=== PATIENT | male | born 1975 | race Caucasian/White ===

== ENCOUNTER 2017-05-20 16:05 | Inpatient (IN) | payer MEDICAID, OTHER ==
[~2017-05-20] VITALS: Ht 167.6 cm; Wt 86.0 kg
[2017-05-20 17:11] LABS: BASOPHILS % 0.4 % (0.0-2.0); EOSINOPHILS % 0.6 % (0.0-7.0); HEMATOCRIT 44.6 % (42.0-52.0); HEMOGLOBIN 14.7 g/dl (14.0-18.0); LYMPHOCYTES # 1.1 10^3/ul (0.8-2.9); LYMPHOCYTES % 15.4 % (15.0-51.0); MEAN CORPUSCULAR HEMOGLOBIN 28.5 pg (29.0-33.0); MEAN CORPUSCULAR VOLUME 86.4 fl (82.0-101.0); MEAN PLATELET VOLUME 10.4 fl (7.4-10.4); MONOCYTE # 0.9 10^3/ul (0.3-0.9); NEUTROPHILS % 71.2 % (39.0-77.0); PLATELET COUNT 407 10^3/UL (140-415); POSITIVE DIFF @See below; RED BLOOD COUNT 5.16 10^6/ul (4.70-6.10); RED CELL DISTRIBUTION WIDTH 16.3 % (11.5-14.5); WHITE BLOOD COUNT 7.1 10^3/ul (4.8-10.8)
[2017-05-20 17:46] LABS: ALBUMIN 4.6 g/dl (3.3-4.9); ALKALINE PHOSPHATASE 237 IU/L (42-121); ANION GAP 16 (8-16); BILIRUBIN,INDIRECT 2.4 mg/dl (0-1.1); BLOOD UREA NITROGEN 12 mg/dl (7-20); CALCIUM 9.9 mg/dl (8.4-10.2); CARBON DIOXIDE 29 mmol/L (21-31); CHLORIDE 99 mmol/L (97-110); CREATININE 1.51 mg/dl (0.61-1.24); GLUCOSE 130 mg/dl (70-220); POTASSIUM 4.4 mmol/L (3.5-5.1); SODIUM 140 mmol/L (135-144); TOTAL PROTEIN 9.2 g/dl (6.1-8.1)
[2017-05-20 17:49] LABS: ETHANOL < 10.0 mg/dl
[2017-05-20 17:53] LABS: ALANINE AMINOTRANSFERASE 2659 IU/L (13-69)
[2017-05-20 18:08] LABS: ASPARTATE AMINO TRANSFERASE 1532 IU/L (15-46)
--- NOTE | 2017-05-20 18:25 | ERA ---
ER Documentation Chief Complaint Date/Time DATE: 05/20/17 TIME: 18:20 Chief Complaint Nausea x 5 days "eyes look yellow" x 2 days HPI This is a 41-year-old male with no previous medical history who presents to the emergency room for evaluation of nausea, and abdominal cramping for the past 5 days. According to the patient today he came to the emergency room because he started to notice that his skin started to become yellow and is progressively gotten worse over the past 48 hours. The patient denies any history of alcohol ingestion, denies any illicit drugs, and states he has abdominal cramping but denies any abdominal pain at this time. The patient came to the ER for evaluation. ROS All systems reviewed and are negative except as per history of present illness. Medications Home Meds No Active Prescriptions or Reported Meds Allergies Allergies: Coded Allergies: No Known Allergy (Unverified , 05/20/17) PMhx/Soc Medical and Surgical Hx: pt denies Medical Hx, pt denies Surgical Hx Hx Alcohol Use: No Hx Substance Use: No Hx Tobacco Use: No Smoking Status: Never smoker Physical Exam Vitals Vital Signs Date Time Temp Pulse Resp B/P Pulse Ox O2 Delivery O2 Flow Rate FiO2 05/20/17 16:09 96.8 99 19 139/91 96 Physical Exam INITIAL VITAL SIGNS: Reviewed by me GENERAL: The patient is well developed and appropriate for usual state of health in no apparent distress HEENT: Scleral icterus, pupils equal, round, and reactive to light. EOMI. NECK: C-spine is soft and supple, there is no meningismus. There is no cervical lymphadenopathy. LUNGS: Clear to auscultation bilaterally. There are no rales, wheezes or rhonchi. HEART: Regular rate and rhythm, no murmurs, clicks, rubs or gallops. ABDOMEN: Epigastric tenderness to palpation, negative Urrutia sign, otherwise soft, non-tender, non-distended. There are bowel sounds in all four quadrants. No rebound or guarding. EXTREMITIES: There is no peripheral cyanosis or edema. No focal swelling or erythema. NEUROLOGICAL: The patient moves all four extremities with 5/5 strength. Cranial nerves II - XII are intact. Normal gait. Alert and oriented SKIN: Jaundice skin HEME/LYMPHATIC: There is no evidence of excessive bruising or lymphedema. PSYCHIATRIC: The patient does not appear anxious or depressed. Result Diagram: 05/20/17 1650 05/20/17 1650 Results 24 hrs Laboratory Tests Test 05/20/17 16:50 White Blood Count 7.110^3/ul Red Blood Count 5.1610^6/ul Hemoglobin 14.7g/dl Hematocrit 44.6% Mean Corpuscular Volume 86.4fl Mean Corpuscular Hemoglobin 28.5pg Mean Corpuscular Hemoglobin Concent 33.0g/dl Red Cell Distribution Width 16.3% Platelet Count 32074^3/UL Mean Platelet Volume 10.4fl Neutrophils % 71.2% Lymphocytes % 15.4% Monocytes % 12.0% Eosinophils % 0.6% Basophils % 0.4% Nucleated Red Blood Cells % 0.0/100WBC Neutrophils # (Manual) 5.110^3/ul Lymphocytes # 1.110^3/ul Monocytes # 0.910^3/ul Eosinophils # 0.010^3/ul Basophils # 0.010^3/ul Nucleated Red Blood Cells # 0.010^3/ul Sodium Level 140mmol/L Potassium Level 4.4mmol/L Chloride Level 99mmol/L Carbon Dioxide Level 29mmol/L Anion Gap 16 Blood Urea Nitrogen 12mg/dl Creatinine 1.51mg/dl Glucose Level 130mg/dl Calcium Level 9.9mg/dl Total Bilirubin 15.0mg/dl Direct Bilirubin 12.60mg/dl Indirect Bilirubin 2.4mg/dl Aspartate Amino Transf (AST/SGOT) 1532IU/L Alanine Aminotransferase (ALT/SGPT) 2659IU/L Alkaline Phosphatase 237IU/L Total Protein 9.2g/dl Albumin 4.6g/dl Globulin 4.60g/dl Albumin/Globulin Ratio 1.00 Lipase 187U/L Ethyl Alcohol Level < 10.0mg/dl Current Medications Medications (Trade) Dose Ordered Sig/Sachin Route PRN Reason Start Time Stop Time Status Last Admin Dose Admin Ondansetron HCl (Zofran Inj) 4 mg BRIDGE ORDER PRN IV NAUSEA AND/OR VOMITING 05/20/17 18:30 05/21/17 18:29 Acetaminophen (Tylenol Tab) 650 mg ER BRIDGE PRN PO MILD PAIN/FEVER 05/20/17 18:30 05/21/17 18:29 Procedures/MDM Ultrasound abdomen: Increased echogenicity of the liver parenchyma suggestive of hepatic steatosis. No focal hepatic lesions. Normal caliber intrahepatic and extrahepatic biliary system. Gallbladder appears contracted without gallstones, no evidence of cholecystitis. This 41-year-old male presents to the ER for evaluation of jaundice and abdominal cramping. When I evaluated this patient he appear to be extremely jaundiced and did have some mild epigastric tenderness to palpation however negative Urrutia sign. This patient had lab work obtained in his lab work does show bilirubin level of 15 with a direct bilirubin of 12.6. The patient also has transaminitis with AST greater than 1500 was a month, ALT greater than 2600. The patient did not have any obstruction on ultrasound however the patient will need to be admitted at this time for ERCP for evaluation of any possible distal obstruction which is not visualized on ultrasound at this time. The patient is comfortable with the plan of care. He will be admitted to the Medr floor under the care of Dr. Baeza Departure Diagnosis: Primary Impression: Jaundice Additional Impressions: Acute hepatitis Transaminitis Condition: Stable NOAM MORTON DO May 20, 2017 18:25
[2017-05-20] MEDS ORDERED: ACETAMINOPHEN 325 MG TAB PO PRN (18:30)
[2017-05-20] MEDS ORDERED: ONDANSETRON 4 MG INJ IV PRN (18:30)
[2017-05-20 18:38] LABS: ADD UMIC NO; UR ASCORBIC ACID NEGATIVE (NEGATIVE); UR BILIRUBIN (Dip) 2+ mg/dL (NEGATIVE); UR BLOOD (Dip) NEGATIVE (NEGATIVE); UR CLARITY SLIGHTLY CLOUDY (CLEAR); UR COLOR AMBER (YELLOW); UR GLUCOSE (Dip) NEGATIVE (NEGATIVE); UR KETONES (Dip) NEGATIVE (NEGATIVE); UR LEUKOCYTE ESTERASE (Dip) NEGATIVE Leu/ul (NEGATIVE); UR NITRITE (Dip) NEGATIVE (NEGATIVE); UR RBC 0 /HPF (0-5); UR SPECIFIC GRAVITY (Dip) 1.015 (1.003-1.030); UR TOTAL PROTEIN (Dip) NEGATIVE (NEGATIVE); UR UROBILINOGEN (Dip) 2+ mg/dL (NEGATIVE)
[2017-05-20 18:48] LABS: HAAIG REFLEX REFLEX FILED
[2017-05-20 20:18] LABS: HEPATITIS B CORE ANTIBODY REACTIVE (NEGATIVE)
[2017-05-20 22:58] VITALS: TEMP 97.1
[2017-05-20 23:30] VITALS: BP 139/88; RESP 20; Ht 167.6 cm; Wt 86.0 kg
[2017-05-21] MEDS ORDERED: ACETAMINOPHEN 325 MG TAB PO PRN
[2017-05-21] MEDS ORDERED: ONDANSETRON 4 MG INJ IV PRN
[2017-05-21] MEDS ORDERED: morphine 2 MG INJ IV PRN
--- NOTE | 2017-05-21 05:35 | HP ---
Date/Time of Note Date/Time of Note DATE: 05/21/17 TIME: 05:26 Assessment/Plan VTE Prophylaxis VTE Prophylaxis Intervention: SCD's Lines/Catheters IV [facility] Saline [facility] Assessment/Plan Assessment/Plan 1. Acute hepatitis -Patient presented with abdominal pain and jaundice with labs showing severely elevated bilirubin as well as transaminases. Right upper quadrant ultrasound shows a contracted gallbladder without stone or cholecystitis. Will order MRCP , will follow up results of hepatitis panel. I will start him on steroid. Will place a GI consult. Pain medication as needed. 2. Painless jaundice: See #1 3. Presumed acute kidney injury -will treat with IV fluid -Renal ultrasound and nephrology consult as needed HPI/ROS Admit Date/Time Admit Date/Time May 20, 2017 at 18:13 Hx of Present Illness This is a 41-year-old male with no significant past medical history who presented to the emergency department complaining of nausea and jaundice. 5 days ago, he started noticing his eyes and his skin turning yellow with associated nausea. He denied abdominal pain, fever/chills. He denied weight loss, recent travel or sick contacts. He denied alcohol or illicit drug use. He also denied antibiotic or any other [id number]-sjisthc or prescription medication use recently. When he presented to the ER, labs show severely abnormal liver chemistries with total bilirubin 15 with the direct bilirubin of 26.6 AST 1532, ALT 2659, alk phos 237. Creatinine is 1.5. Right upper quadrant ultrasound shows contracted gallbladder without stones or cholecystitis. . PMH/Family/Social Past Medical History Medical History: no pertinent history Social History Alcohol Use: none Smoking Status: Never smoker Drug Use: none Exam/Review of Systems Vital Signs Vitals Vital Signs Date Time Temp Pulse Resp B/P Pulse Ox O2 Delivery O2 Flow Rate FiO2 05/20/17 23:30 99.1 91 20 139/88 96 05/20/17 22:58 Room Air Intake and Output 05/20/17 05/20/17 05/21/17 15:00 23:00 07:00 Intake Total 200 ml Balance 200 ml Exam Constitutional: other (No acute distress) Head: atraumatic, normocephalic Eyes: icteric Respiratory: clear to auscultation, normal air movement Cardiovascular: nl pulses, regular rate and rhythm Gastrointestinal: soft, tender Extremities: normal pulses Skin: other (Jaundiced) Labs Result Diagram: 05/20/17164905/20/171649 Medications Medications Current Medications Morphine Sulfate (morphine) 2 mg Q4H PRN IV PAIN; Start 05/21/17 at 00:00 Ondansetron HCl (Zofran Inj) 4 mg Q6H PRN IV NAUSEA AND/OR VOMITING; Start at 00:00 Acetaminophen (Tylenol Tab) 650 mg Q6H PRN PO PAIN AND OR ELEVATED TEMP; Start 05/21/17 at 00:00 Dexamethasone (Decadron) 6 mg Q6 IV ; Start 05/21/17 at 05:30; Status UNV DARON GIORDANO MD May 21, 2017 05:35
[2017-05-21] MEDS: DEXAMETHASONE 4 MG/ML 1 ML INJ IV SCH ×4 (06:00→17:49)
[2017-05-21 06:26] LABS: BASOPHILS % 0.5 % (0.0-2.0); EOSINOPHILS # 0.1 10^3/ul (0.0-0.5); EOSINOPHILS % 1.2 % (0.0-7.0); LYMPHOCYTES # 1.6 10^3/ul (0.8-2.9); MEAN CORPUSCULAR HEMOGLOBIN 28.6 pg (29.0-33.0); MEAN CORPUSCULAR HGB CONC 33.3 g/dl (32.0-37.0); MEAN CORPUSCULAR VOLUME 85.9 fl (82.0-101.0); MEAN PLATELET VOLUME 10.7 fl (7.4-10.4); MONOCYTE # 1.1 10^3/ul (0.3-0.9); MONOCYTES % 12.7 % (0.0-11.0); NEUTROPHILS % 65.9 % (39.0-77.0); PLATELET COUNT 405 10^3/UL (140-415); POSITIVE DIFF @See below; RED BLOOD COUNT 4.89 10^6/ul (4.70-6.10); RED CELL DISTRIBUTION WIDTH 16.5 % (11.5-14.5); WHITE BLOOD COUNT 8.6 10^3/ul (4.8-10.8)
[2017-05-21] MEDS: SOD CHLORIDE 0.9% 1,000 ML IV SCH ×3 (06:28→17:49)
[2017-05-21 06:57] LABS: ALBUMIN 4.1 g/dl (3.3-4.9); ALBUMIN/GLOBULIN RATIO 0.97; BILIRUBIN,DIRECT 11.6 mg/dl (0.00-0.20); BILIRUBIN,INDIRECT 2.3 mg/dl (0-1.1); BILIRUBIN,TOTAL 13.9 mg/dl (0.2-1.3); CALCIUM 9.6 mg/dl (8.4-10.2); CREATININE 1.2 mg/dl (0.61-1.24); MAGNESIUM 2.2 mg/dl (1.7-2.5); PHOSPHORUS 4.5 mg/dl (2.5-4.9); POTASSIUM 4.2 mmol/L (3.5-5.1); TOTAL PROTEIN 8.3 g/dl (6.1-8.1)
[2017-05-21 07:48] VITALS: BP 128/75; RESP 16
--- NOTE | 2017-05-21 09:51 | RADRPT ---
PROCEDURE: Right upper quadrant abdominal ultrasound. CLINICAL INDICATION: Abdominal pain, jaundice TECHNIQUE: Dumont scale and color doppler ultrasound images of the right upper quadrant of the abdom en. COMPARISON: None FINDINGS: Pancreas: Visualized portions appear of normal echogenicity without focal lesions. Liver: Morphology: Mildly enlarged measuring 17.2 cm. Contour:Normal, no evidence of nodularity. Echogenicity: Increased Focal lesions:None. Main portal vein: Patent with hepatopetal flow. Biliary System: Gallbladder wall: Appears contracted without evidence of mural edema. Gallstones: None. Intrahepatic bile ducts: Normal caliber. Common bile duct diameter (mm): 3.2 Kidneys: Right length (cm) : 10.5 Right cortical thickness: Normal. Echogenicity: Normal. Hydronephrosis: None. Renal calculi: None. Focal lesions: None. Free fluid/ascites: None. Abdominal aorta: Normal caliber of the visualized segments. Other findings: None. IMPRESSION: Increased echogenicity of the liver parenchyma suggestive of hepatic steatosis. No focal hepatic les ions. Normal caliber intrahepatic and extrahepatic biliary system. Gallbladder appears contracted without gallstones, no evidence of cholecystitis. RPTAT: AADD .Perez Hernandez MD, MD Date Time Electronically viewed and signed by .Perez Hernandez MD, on 05/20/2017 16:57 .B/
--- NOTE | 2017-05-21 11:06 | RADRPT ---
PROCEDURE: MRCP. CLINICAL INDICATION: Abnormal liver function test. Jaundice. Hepatitis. TECHNIQUE: MRCP was performed on a high field MRI scanner. Patient was examined without contrast. 3-D coronal rotating MIP images of the biliary tree are available for review. COMPARISON: Abdominal ultrasound 05/20/2017. FINDINGS: Motion artifact and lack of intravenous contrast limit evaluation of parenchymal detail of the upper abdominal organs. The gallbladder is contracted. There is no intrahepatic or extrahepatic biliary duct dilatation. T he common bile duct measures approximately 4 mm in diameter. There is no signal void within the com mon bile duct to suggest the presence of choledocholithiasis. The pancreatic duct is normal in coleen henry. The liver measures approximately 17.0 cm in a craniocaudal dimension. The liver is homogeneous in s ignal intensity as is the spleen. The liver is somewhat low in T2 signal intensity which may be a re sult of increased iron content. The spleen measures approximately 11.0 cm in a craniocaudal dimensio n. The pancreas is homogeneous in signal intensity. There is no peripancreatic edema. The adrenal glands are normal. The kidneys are symmetric in size and signal intensity. There is no hydronephrosis or perinephric i nflammation. The abdominal aorta is normal in caliber. There is no periaortic / retroperitoneal lymphadenopathy. The stomach is collapsed. The visualized portions of the small and large intestines are unremarkabl e. There is no ascites. There are no bone marrow signal abnormalities. Body wall soft tissues are unremarkable. IMPRESSION: Contracted gallbladder without biliary dilatation/obstruction. Abnormal signal intensity of the liver which may reflect increased iron content. No evidence of abdominal mass, lymphadenopathy or acute inflammatory pathology. RPTAT: HLST .Elizabeth Huff MD, MD Date Time Electronically viewed and signed by .Elizabeth Huff MD, MD on 05/21/2017 10:28 .T/
[2017-05-21 11:57] LABS: IRON 266 ug/dl (35-150)
[2017-05-21 12:08] LABS: TOTAL IRON BINDING CAPACITY 292 ug/dl (241-421)
[2017-05-21 13:39] VITALS: BP 126/81; RESP 16
--- NOTE | 2017-05-21 15:07 | PN ---
Date/Time of Note Date/Time of Note DATE: 05/21/17 TIME: 15:00 Assessment/Plan VTE Prophylaxis VTE Prophylaxis Intervention: ambulation, SCD's Lines/Catheters IV Catheter Type (from Nrs): Peripheral IV Assessment/Plan Chief Complaint/Hosp Course Impression and plan 1. Hepatitis B. Patient with positive hepatitis B titer. Continue on steroid. GI following. Follow-up with recommendations. 2. Transaminitis and painless jaundice. Patient with MRCP that did show contracted gallbladder without biliary dilation/obstruction. There was abnormal signal intensity of the liver suspect for reflection of increased iron content. Patient also with high levels of iron on that result. Suspect differential hepatitis versus possible hemochromatosis. Follow-up with GI recommendations. Monitor LFT. 3. Acute renal insufficiency. Improved at this time. Continue to monitor renal panel. Disposition and plan: GI was consulted. Await input. Remains on steroid. Follow-up on ferritin level. Possible workup for hemochromatosis. Discussed plan of care with Dr. Baeza Problems: Subjective 24 Hr Interval Summary Free Text/Dictation denies any pain at this time. Exam/Review of Systems Vital Signs Vitals Vital Signs Date Time Temp Pulse Resp B/P Pulse Ox O2 Delivery O2 Flow Rate FiO2 05/21/17 13:39 98.3 89 16 126/81 95 05/20/17 22:58 Room Air Intake and Output 05/20/17 05/20/17 05/21/17 15:00 23:00 07:00 Intake Total 200 ml Balance 200 ml Exam Constitutional: alert, oriented Psych: nl mood/affect Head: normocephalic Eyes: icteric Neck: No jvd Respiratory: normal air movement Cardiovascular: regular rate and rhythm Gastrointestinal: non-tender, soft Neurological: SLEEPING CAR CONDUCTOR II-XII intact, nl mental status, nl speech Skin: other (jaundice) Results Result Diagram: 05/21/17 0544 05/21/17 0544 Results 24 hrs Laboratory Tests Test 05/20/17 16:50 05/20/17 17:00 05/21/17 05:44 White Blood Count 7.1 8.6 # Red Blood Count 5.16 4.89 Hemoglobin 14.7 14.0 Hematocrit 44.6 42.0 Mean Corpuscular Volume 86.4 85.9 Mean Corpuscular Hemoglobin 28.5 L 28.6 L Mean Corpuscular Hemoglobin Concent 33.0 33.3 Red Cell Distribution Width 16.3 H 16.5 H Platelet Count 407 405 Mean Platelet Volume 10.4 10.7 H Neutrophils % 71.2 65.9 Lymphocytes % 15.4 19.0 Monocytes % 12.0 H 12.7 H Eosinophils % 0.6 1.2 Basophils % 0.4 0.5 Nucleated Red Blood Cells % 0.0 0.0 Neutrophils # (Manual) 5.1 5.7 Lymphocytes # 1.1 1.6 Monocytes # 0.9 1.1 H Eosinophils # 0.0 0.1 Basophils # 0.0 0.0 Nucleated Red Blood Cells # 0.0 0.0 Sodium Level 140 142 Potassium Level 4.4 4.2 Chloride Level 99 98 Carbon Dioxide Level 29 27 Anion Gap 16 21 H Blood Urea Nitrogen 12 11 Creatinine 1.51 H 1.20 Glucose Level 130 108 Calcium Level 9.9 9.6 Total Bilirubin 15.0 H 13.9 H Direct Bilirubin 12.60 H 11.60 H Indirect Bilirubin 2.4 H 2.3 H Aspartate Amino Transf (AST/SGOT) 1532 H 1380 H Alanine Aminotransferase (ALT/SGPT) 2659 H 2295 H Alkaline Phosphatase 237 H 220 H Total Protein 9.2 H 8.3 H Albumin 4.6 4.1 Globulin 4.60 H 4.20 H Albumin/Globulin Ratio 1.00 0.97 Lipase 187 Ethyl Alcohol Level < 10.0 Hepatitis A Antibody Total POSITIVE H Hepatitis B Surface Antigen POSITIVE H Hepatitis B Core Total Antibody REACTIVE H Hepatitis C Antibody NEGATIVE Urine Color IGNACIA Urine Clarity SLIGHTLY CLOUDY A Urine pH 5.0 Urine Specific [place] 1.015 Urine Ketones NEGATIVE Urine Nitrite NEGATIVE Urine Bilirubin 2+ H Urine Urobilinogen 2+ H Urine Leukocyte Esterase NEGATIVE Urine Microscopic RBC 0 Urine Microscopic WBC 7 H Urine Hemoglobin NEGATIVE Urine Glucose NEGATIVE Urine Total Protein NEGATIVE Phosphorus Level 4.5 Magnesium Level 2.2 Iron Level 266 H Total Iron Binding Capacity 292 Percent Iron Saturation 91 H Medications Medications Current Medications Morphine Sulfate (morphine) 2 mg Q4H PRN IV PAIN; Start 05/21/17 at 00:00 Ondansetron HCl (Zofran Inj) 4 mg Q6H PRN IV NAUSEA AND/OR VOMITING; Start at 00:00 Dexamethasone 6 mg 6 mg Q6 IV Last administered on 05/21/17t 12:54; Admin Dose 6 MG; Start 05/21/17 at 05:30 Sodium Chloride (NS) 1,000 ml @ 125 mls/hr Q8H IV Last administered on t 06:28; Admin Dose 125 MLS/HR; Start 05/21/17 at 06:00 KODI CHASE May 21, 2017 15:06
[2017-05-21 20:00] VITALS: BP 119/73; RESP 18
[2017-05-22] MEDS: DEXAMETHASONE 4 MG/ML 1 ML INJ IV SCH ×5 (00:37→23:42)
[2017-05-22 02:32] VITALS: BP 118/66; RESP 18
[2017-05-22 05:44] LABS: BASOPHILS % 0.2 % (0.0-2.0); HEMATOCRIT 41.7 % (42.0-52.0); LYMPHOCYTES # 1.2 10^3/ul (0.8-2.9); LYMPHOCYTES % 11.5 % (15.0-51.0); MEAN CORPUSCULAR HGB CONC 33.6 g/dl (32.0-37.0); MEAN CORPUSCULAR VOLUME 86.3 fl (82.0-101.0); MEAN PLATELET VOLUME 10.7 fl (7.4-10.4); MONOCYTE # 0.4 10^3/ul (0.3-0.9); MONOCYTES % 3.5 % (0.0-11.0); NEUTROPHILS % 83.6 % (39.0-77.0); PLATELET COUNT 452 10^3/UL (140-415); POSITIVE DIFF @See below; RED BLOOD COUNT 4.83 10^6/ul (4.70-6.10); RED CELL DISTRIBUTION WIDTH 16.6 % (11.5-14.5); WHITE BLOOD COUNT 10.7 10^3/ul (4.8-10.8)
[2017-05-22 06:11] LABS: ALBUMIN/GLOBULIN RATIO 1.02; BILIRUBIN,DIRECT 10.3 mg/dl (0.00-0.20); BILIRUBIN,INDIRECT 2.5 mg/dl (0-1.1); BILIRUBIN,TOTAL 12.8 mg/dl (0.2-1.3); CALCIUM 9.5 mg/dl (8.4-10.2); CREATININE 1.1 mg/dl (0.61-1.24); POTASSIUM 4.2 mmol/L (3.5-5.1); TOTAL PROTEIN 7.9 g/dl (6.1-8.1)
[2017-05-22] MEDS: SOD CHLORIDE 0.9% 1,000 ML IV SCH ×3 (06:15→22:00)
[2017-05-22 07:37] VITALS: BP 115/68; RESP 16
--- NOTE | 2017-05-22 11:07 | PN ---
Date/Time of Note Date/Time of Note DATE: 05/22/17 TIME: 11:06 Assessment/Plan VTE Prophylaxis VTE Prophylaxis Intervention: ambulation, SCD's Lines/Catheters IV Catheter Type (from Nrs): Peripheral IV Assessment/Plan Chief Complaint/Hosp Course 1. New-onset transaminitis with hyperbilirubinemia. Etiology unclear. Hepatitis B antibody positive. Hepatitis B IgM pending. Hepatitis A antibody positive. However hepatitis A IgM negative. Pending gastroenterology evaluation. MRCP negative for any biliary dilatation or obstruction. Will obtain hematology consult because of underlying hemochromatosis. 2. New onset hyperbilirubinemia with hemochromatosis. Obtain hematology evaluation. 3. Acute kidney injury. Resolved with IV hydration. 4. Obesity. BMI of 30.6 kg/m. Will obtain a hemoglobin A1c and fasting lipid panel. 5. Fluids, electrolytes, and nutrition. N.p.o. Continue IV fluids. 6. DVT prophylaxis. Ambulation. Bilateral sequential compression devices. 7. Plan. Continue to monitor LFTs closely. Await gastroenterology evaluation. Call hematology consult. Case discussed with Dr. Baeza. Problems: Subjective 24 Hr Interval Summary Free Text/Dictation Complains of being hungry. Denies any pain. Exam/Review of Systems Vital Signs Vitals Vital Signs Date Time Temp Pulse Resp B/P Pulse Ox O2 Delivery O2 Flow Rate FiO2 05/22/17 07:37 98.7 78 16 115/68 94 05/20/17 22:58 Room Air Intake and Output 05/21/17 05/21/17 05/22/17 15:00 23:00 07:00 Intake Total 1000 ml 1000 ml Balance 1000 ml 1000 ml Exam General: Adequately build 41 year-old male lying in bed in no apparent distress. HEENT: Normocephalic, atraumatic. Eyes: Icteric sclerae, conjunctivae clear. ENT : Nasal septum midline, oral mucosa moist. Neck supple, no JVD noticed. Respiratory: Bilaterally clear breath sounds. No use of accessory muscles of respiration. No adventitious breath sounds. Cardiovascular: S1, S2 heard. Regular rate and rhythm. Abdomen: Soft, nontender, and nondistended. Bowel sounds positive in all 4 quadrants. Genitourinary: Deferred. Extremities: No cyanosis, no clubbing, no edema. Peripheral pulses palpable. Neurologic: Cranial nerves II through XII grossly intact. The patient is awake, alert, and oriented. Skin: Normal skin turgor. No skin rashes. Results Result Diagram: 05/22/17 0505 05/22/17 0505 Results 24 hrs Laboratory Tests Test 05/22/17 05:05 White Blood Count 10.7 # Red Blood Count 4.83 Hemoglobin 14.0 Hematocrit 41.7 L Mean Corpuscular Volume 86.3 Mean Corpuscular Hemoglobin 29.0 Mean Corpuscular Hemoglobin Concent 33.6 Red Cell Distribution Width 16.6 H Platelet Count 452 H Mean Platelet Volume 10.7 H Neutrophils % 83.6 H Lymphocytes % 11.5 L Monocytes % 3.5 Eosinophils % 0.0 Basophils % 0.2 Nucleated Red Blood Cells % 0.0 Neutrophils # (Manual) 9 H Lymphocytes # 1.2 Monocytes # 0.4 Eosinophils # 0.0 Basophils # 0.0 Nucleated Red Blood Cells # 0.0 Sodium Level 142 Potassium Level 4.2 Chloride Level 105 Carbon Dioxide Level 24 Anion Gap 17 H Blood Urea Nitrogen 18 Creatinine 1.10 Glucose Level 159 Calcium Level 9.5 Total Bilirubin 12.8 H Direct Bilirubin 10.30 H Indirect Bilirubin 2.5 H Aspartate Amino Transf (AST/SGOT) 703 H Alanine Aminotransferase (ALT/SGPT) 1737 H Alkaline Phosphatase 185 H Total Protein 7.9 Albumin 4.0 Globulin 3.90 H Albumin/Globulin Ratio 1.02 Medications Medications Current Medications Morphine Sulfate (morphine) 2 mg Q4H PRN IV PAIN; Start 05/21/17 at 00:00 Ondansetron HCl (Zofran Inj) 4 mg Q6H PRN IV NAUSEA AND/OR VOMITING; Start at 00:00 Dexamethasone 6 mg 6 mg Q6 IV Last administered on 05/22/17 06:16; Admin Dose 6 MG; Start 05/21/17 at 05:30 Sodium Chloride (NS) 1,000 ml @ 125 mls/hr Q8H IV Last administered on 06:15; Admin Dose 125 MLS/HR; Start 05/21/17 at 06:00 ALYSSA CERDA NP May 22, 2017 11:07
[2017-05-22 11:10] LABS: CHOL/HDL RATIO 9.6 RATIO
--- NOTE | 2017-05-22 12:17 | EN ---
Date/Time of Note Date/Time of Note DATE: 05/22/17 TIME: 11:59 Event Note Medicine Medicine Event Note Hematology/Oncology consultation dictated. 41 y/o male with 1 week hx of abd discomfort, nausea and anorexia. Pt has also noted onset of jaundice about 5 days ago. Pt has had no fevers or chills. No pruritus. States that urine has been dark but no acholic stools. Pt found to have Bili>15 which is mostly direct. Transaminases >1,000 but improving. Alk phos is increased but not consistent with biliary obstruction or cholestasis. Imaging suggest nl size and homogeneous liver and spleen. Some abn uptake MRI consistent with hepatic iron deposition. No evidence of hepatic mass or fibrosis. No biliary dilatation. No intra-abdominal, retroperitoneal or mesenteric adenopathy. No evidence of portal hypertension. Ferritin> 10,000 and % Sat is 94%. Hepatitis serologies demonstrate Hep A Ab, Positive Hepatitis B surface antigen and core antibody. Hep B core IgM AB is pending. Pt has never had hepatitis B vaccination. Denies ETOH or drug use. No Tattoos. No recent injections, blood transfusions, etc. Not aware of contact with anyone with similar symptoms. No family hx of any hematologic or hepatic problems. Feel that picture is consistent with acute viral hepatitis. Iron studies are consistent with this dx. Will check for mutations consistent with Hereditary Hemochromatosis. Will also check HIV, alpha 1 antitrypsin level, PT/PTT and ammonia. Alpha Fetoprotein is pending. Copies To: CC: KODI CHASE STANLEY H MD May 22, 2017 12:14
--- NOTE | 2017-05-22 12:48 | CONS ---
DATE OF ADMISSION: 05/20/2017 DATE OF CONSULTATION: 05/22/2017 PHYSICIAN REQUESTING CONSULTATION: Dr. Villanueva, also Tom Stephens NP, and also Darrell Razo NP. Dear Dr. Villanueva, Mr. Stephens and Mr. Rzao: Thank you very much for asking me to see this very pleasant gentleman in hematology/oncology consultation. HISTORY OF PRESENT ILLNESS: Mr. Jnug is a 41-year-old male, who has been in good health in the past. He states, however, that he has been experiencing symptoms of abdominal pain with some nausea. This started approximately 1 week ago. The patient states that during this time he has also had fatigue, as well as a decreased appetite. He has not actually had significant abdominal pain. He has had nausea but no vomiting. He has noted also in the past 4 or 5 days that his sclerae have become increasingly yellow in appearance and his urine has been darker. He denies any change in stool color. He denies any pruritus. The patient has had no fevers or shaking chills. No night sweats. As noted, he has had a decreased appetite but has not had significant weight loss. The patient states that these symptoms started only 1 week ago and were rather sudden in onset. Prior to that, he had been feeling well. The patient was seen in some outpatient clinic and given some type of medication because of his symptoms of abdominal discomfort and loss of appetite. These were not of any benefit and the patient then did come to the emergency room at [facility]. The patient on 05/20/2017, had a white count of 17,100, with an absolute neutrophil count of 5100, absolute lymphocyte count of 1100, red blood cell count 5.16 million, hemoglobin 14.7, hematocrit 44.6, MCV 86.4, MCH 28.5, MCHC 33.0, RDW 16.3, platelet count 407,000 and MPV is 4.0. Also on admission, the patient had a comprehensive metabolic panel, which was normal except for a creatinine of 1.51. Total bilirubin was 15 with a direct bilirubin of 12.6, an indirect bilirubin of 2.4, AST 1532, ALT 2659, alkaline phosphatase 23.7, and total protein 9.2 with albumin of 4.6, and globulin of 4.6. Today, the patient's CMP reveals a total bilirubin of 12.8, direct bilirubin 0.3, indirect 2.5, AST 703, ALT 1737, alkaline phosphatase 185, LDH is 599, total protein 5.7, albumin 4, and globulin 3.90. Imaging studies included an abdominal ultrasound, which shows some increased echogenicity of the liver parenchyma. There were no focal hepatic lesion seen. There was no intra or extrahepatic biliary dilatation. The gallbladder was contracted with no evidence of inflammation. An MRI of the liver demonstrated again a contracted gallbladder without any biliary dilatation. There was an abnormal signal intensity of the liver, which suggested increased iron content. The liver, however, was homogeneous in signal intensity. It measured 17 cm in craniocaudal dimension. The spleen measured 11 cm in craniocaudal dimension. Again, it was homogeneous in signal intensity. The pancreas was normal. Adrenal glands were normal, as were the kidneys. There was no hydronephrosis noted. There was no periaortic or retroperitoneal lymphadenopathy. No mesenteric lymphadenopathy. No ascites and no abnormal bone signal. As noted, the patient states he was in good health until 1 week ago. He was experiencing no symptoms prior to that. PAST MEDICAL HISTORY: The patient has no known medical problems. No history of hypertension, heart disease, diabetes, renal or previous hepatic abnormalities. PAST SURGICAL HISTORY: Patient's only surgery has included an umbilical hernia repair in 2003. This was uncomplicated. The patient has never required blood transfusions. The patient has not knowingly been exposed to any unusual industrial toxins. SOCIAL HISTORY: The patient was born in [place]. He has been in the [facility] for 10 years. He works as a day ammunition assembly laborer but as mentioned, has not knowingly been exposed to any unusual toxins. The patient denies smoking cigarettes or use any tobacco products. He states he drinks alcohol minimally. He does not use any illicit drugs. He has not used any injectable medications. He has never had blood transfusions. He does not have any tattoos. The patient has not been out of the country recently. He states he is not aware of anybody that he has been in contact with having any similar symptoms. He lives with 3 other people, who he states, have all been in good health. FAMILY HISTORY: Remarkable in that there is no family history of any hepatic abnormalities. His father is in his 80s and apparently in good health. His mother is 67 years of age and has thyroid problems. The patient's brothers and sisters are in good health. He has no children. PHYSICAL EXAMINATION: GENERAL: Reveals a well-developed, well-nourished male, who is grossly icteric. VITAL SIGNS: Temperature 98.7, pulse 78 per minute and regular, respirations 16, blood pressure 115/68, and pulse oximetry is 94 percent on room air. SKIN: No ecchymosis, no petechiae or rashes, but icteric. The patient has no tattoos. There are no excoriations. HEENT: Normocephalic. No evidence of trauma. The pupils equal, round, reactive to light and accommodation. Extraocular movements are intact. There is 4+ scleral icterus. Oral mucosa is moist without lesions. Tongue is well papillated. There is no gingival hyperplasia. No hypertrophy of Waldeyer's ring. No mucosal telangiectasias. NECK: Supple. No jugular distention, or thyroid enlargement. No carotid bruits. CHEST: Clear to auscultation and percussion. No rhonchi, wheezes, rales, or rubs. There is no pain on percussion of the spine, sternum, clavicles or ribs. BREASTS: No gynecomastia. HEART: Regular sinus rhythm. No S3, S4, murmurs, no rubs. ABDOMEN: Flat and soft. There is no organomegaly, mass, or tenderness. The patient does not complain of any discomfort on palpation of the right upper quadrant. There are no rubs or bruits heard over the liver. There is no ascites. Bowel sounds are active. EXTREMITIES: Good range of motion. No clubbing. No edema or cyanosis. No palpable cords or Homans sign. NEUROLOGIC: Normal. There is no asterixis. LABORATORY: Includes an alcohol level, which was less than 10. There have been hepatitis serologies present. Hepatitis A IgM antibody is nonreactive. The hepatitis A antibody, however, is positive. Hepatitis B surface antigen is reactive x2. Hepatitis B core antibody is reactive. An IgM antibody is pending. Hepatitis C antibody is negative. DISCUSSION: This patient has a significant transaminitis. He has no evidence of biliary obstruction or any type of intrahepatic lesions. There is no evidence of any cholestatic process. The patient has not been taking any medication of any sort. He has persisted in his denial of use of alcohol or any illicit drugs. He has not had any recent injections of any sort. No tattoos. The patient as noted was born in [place]. He states that he had never had vaccinations for hepatitis B. I do feel that the patient's present problem is an acute viral hepatitis. This does appear to be hepatitis B. The patient's transaminases and bilirubin are already improving and the patient states his symptoms have improved as well. He has less fatigue. He has not complained of any further nausea and is feeling hungry. There is some concern regarding the iron studies. The patient's serum iron is 266, iron-binding capacity 292, with a saturation of 91 percent. Ferritin is greater than 10,000. Certainly these iron studies are suggestive of iron overload. This patient's family history is not consistent with a diagnosis of hereditary hemochromatosis. The patient's MRI does suggest the possibility of iron deposition within the liver but there is no evidence of fibrosis or cirrhosis nor is there any evidence of portal hypertension. Spleen size is normal and there is no evidence of iron deposition within the spleen. I feel that the patient's abnormal iron studies are most consistent with the acute inflammatory process and hepatitis. The patient's hepatitis serologies do suggest a hepatitis B infection. He does have hepatitis B core antibodies. One would expect if this were an acute infection for the IgM antibody to be elevated. This is pending at the present time. I have taken the liberty of ordering a hemochromatosis DNA analysis to determine if this patient does have the mutations associated with hereditary hemochromatosis. We will also obtain an alpha-1 antitrypsin level, although this would be usually associated with cirrhosis. Also we will check an HIV. At this time, I do not feel there is any active therapy necessary. We will also check coagulation studies to make sure that there has not been significant hepatic dysfunction to cause coagulopathy. We will also obtain a blood ammonia, although certainly the patient has no findings suggesting hepatic encephalopathy. Once again, thank you very much for the opportunity of participating in the medical care of this very interesting and pleasant gentleman. I will be happy to follow this patient with you and assist in his hematologic and oncologic evaluation and follow up as necessary. Dictated By: Gerson Graves MD /daquan/[email or web address] /Document#: [id number]
[2017-05-22 13:05] LABS: INR 1.16; PROTIME 14.9 Sec (12.2-14.2); PT RATIO 1.2
[2017-05-22 13:06] LABS: PARTIAL THROMBOPLASTIN TIME 28.6 Sec (25.0-35.0)
[2017-05-22 13:20] LABS: ANA SCREEN NEGATIVE (NEGATIVE)
[2017-05-22 15:38] VITALS: BP 119/71; RESP 16
[2017-05-22 19:44] VITALS: BP 114/58; RESP 20
[2017-05-23] MEDS: SOD CHLORIDE 0.9% 1,000 ML IV SCH ×5 (00:51→20:24)
[2017-05-23 02:00] VITALS: BP 104/58; RESP 20
[2017-05-23] MEDS: DEXAMETHASONE 4 MG/ML 1 ML INJ IV SCH ×3 (05:35→17:40)
[2017-05-23 06:36] LABS: BASOPHILS % 0.1 % (0.0-2.0); HEMATOCRIT 40.8 % (42.0-52.0); HEMOGLOBIN 13.5 g/dl (14.0-18.0); LYMPHOCYTES # 1.5 10^3/ul (0.8-2.9); LYMPHOCYTES % 9.1 % (15.0-51.0); MEAN CORPUSCULAR HEMOGLOBIN 28.4 pg (29.0-33.0); MEAN CORPUSCULAR HGB CONC 33.1 g/dl (32.0-37.0); MEAN CORPUSCULAR VOLUME 85.7 fl (82.0-101.0); MEAN PLATELET VOLUME 10.7 fl (7.4-10.4); MONOCYTE # 0.9 10^3/ul (0.3-0.9); MONOCYTES % 5.3 % (0.0-11.0); NEUTROPHILS % 84.4 % (39.0-77.0); PLATELET COUNT 485 10^3/UL (140-415); RED BLOOD COUNT 4.76 10^6/ul (4.70-6.10); RED CELL DISTRIBUTION WIDTH 17.1 % (11.5-14.5); WHITE BLOOD COUNT 16.2 10^3/ul (4.8-10.8)
[2017-05-23 07:10] LABS: ALBUMIN 3.7 g/dl (3.3-4.9); ALBUMIN/GLOBULIN RATIO 0.97; BILIRUBIN,DIRECT 7.3 mg/dl (0.00-0.20); BILIRUBIN,INDIRECT 2.5 mg/dl (0-1.1); BILIRUBIN,TOTAL 9.8 mg/dl (0.2-1.3); CALCIUM 9.5 mg/dl (8.4-10.2); CREATININE 1.03 mg/dl (0.61-1.24); POTASSIUM 4.6 mmol/L (3.5-5.1); TOTAL PROTEIN 7.5 g/dl (6.1-8.1)
[2017-05-23 07:12] LABS: MAGNESIUM 2.3 mg/dl (1.7-2.5)
[2017-05-23 08:26] VITALS: BP 111/69; RESP 18
--- NOTE | 2017-05-23 11:28 | PN ---
Date/Time of Note Date/Time of Note DATE: 05/23/17 TIME: 11:26 Assessment/Plan VTE Prophylaxis VTE Prophylaxis Intervention: ambulation Lines/Catheters IV Catheter Type (from Nrs): Peripheral IV Assessment/Plan Assessment/Plan Pt has likely hepatitis B. Hemochromatosis gene study is pending. I would not start phlebotomy program yet since the ferritin elevation may just be an acute phase reactant. Will f/u. Subjective 24 Hr Interval Summary Free Text/Dictation Pt sitting comfortably in chair. Exam/Review of Systems Vital Signs Vitals Vital Signs Date Time Temp Pulse Resp B/P Pulse Ox O2 Delivery O2 Flow Rate FiO2 05/23/17 08:26 98.0 63 18 111/69 95 05/20/17 22:58 Room Air Intake and Output 05/22/17 05/22/17 05/23/17 15:00 23:00 07:00 Intake Total 1000 ml 1500 ml Balance 1000 ml 1500 ml Exam Constitutional: alert, oriented Psych: no complaints Head: normocephalic Eyes: icteric Neck: supple Respiratory: clear to auscultation Cardiovascular: regular rate and rhythm Gastrointestinal: soft Results Result Diagram: 05/23/17 0528 05/23/17 0528 Results 24 hrs Laboratory Tests Test 05/22/17 12:15 05/23/17 05:28 Prothrombin Time 14.9 H Prothrombin Time Ratio 1.2 INR International Normalized Ratio 1.16 Activated Partial Thromboplast Time 28.6 Ammonia 12 HIV (1&2) Antibody NEGATIVE White Blood Count 16.2 #H Red Blood Count 4.76 Hemoglobin 13.5 L Hematocrit 40.8 L Mean Corpuscular Volume 85.7 Mean Corpuscular Hemoglobin 28.4 L Mean Corpuscular Hemoglobin Concent 33.1 Red Cell Distribution Width 17.1 H Platelet Count 485 H Mean Platelet Volume 10.7 H Neutrophils % 84.4 H Lymphocytes % 9.1 L Monocytes % 5.3 Eosinophils % 0.0 Basophils % 0.1 Nucleated Red Blood Cells % 0.0 Neutrophils # (Manual) 14 H Lymphocytes # 1.5 Monocytes # 0.9 Eosinophils # 0.0 Basophils # 0.0 Nucleated Red Blood Cells # 0.0 Sodium Level 147 H Potassium Level 4.6 Chloride Level 104 Carbon Dioxide Level 27 Anion Gap 21 H Blood Urea Nitrogen 27 H Creatinine 1.03 Glucose Level 150 Calcium Level 9.5 Phosphorus Level 5.0 H Magnesium Level 2.3 Total Bilirubin 9.8 #H Direct Bilirubin 7.30 #H Indirect Bilirubin 2.5 H Aspartate Amino Transf (AST/SGOT) 365 H Alanine Aminotransferase (ALT/SGPT) 1278 H Alkaline Phosphatase 159 H Total Protein 7.5 Albumin 3.7 Globulin 3.80 H Albumin/Globulin Ratio 0.97 Medications Medications Current Medications Morphine Sulfate (morphine) 2 mg Q4H PRN IV PAIN; Start 05/21/17 at 00:00 Ondansetron HCl (Zofran Inj) 4 mg Q6H PRN IV NAUSEA AND/OR VOMITING; Start at 00:00 Dexamethasone 6 mg 6 mg Q6 IV Last administered on 05/23/17 05:35; Admin Dose 6 MG; Start 05/21/17 at 05:30 Sodium Chloride (NS) 1,000 ml @ 125 mls/hr Q8H IV Last administered on 00:51; Admin Dose 125 MLS/HR; Start 05/21/17 at 06:00 PATRICIA VILLARREAL MD May 23, 2017 11:28
--- NOTE | 2017-05-23 11:50 | CONS ---
Date/Time of Note Date/Time of Note DATE: 05/23/17 TIME: 11:44 Assessment/Plan Assessment/Plan Additional Assessment/Plan Assessment: * Acute hepatitis B no identifiable risk factors * Obesity Plan: * Patient appears safe for outpatient follow-up * He has been advised to follow-up liver function tests in a weekly basis to resolution * He has also been advised to follow isolation precautions for another month Consultation Date/Type/Reason Admit Date/Time May 20, 2017 at 18:13 Date of Consultation: May 23, 2017 Type of Consultation: GI/liver Reason for Consultation Hepatitis B Hx of Present Illness 41-year-old male hospitalized with abdominal discomfort has been found to have jaundice and significant elevation of AST ALT, negative MRI MRCP, positive hepatitis B surface antigen, hepatitis B core IgM antibodies therefore diagnosis of her acute hepatitis B. The patient is asymptomatic other than jaundice. He denies any risk factors for parenterally transmitted disease. He has been advised to isolate his personal items and to follow-up as an outpatient to assure resolution of the hepatitis process or identified chronicity if that was the case. At the present time there is no additional therapeutic intervention from the gastroenterology point of view. The patient appears safe for discharge. I have requested hepatitis BE antigen and hepatitis DNA by PCR to complete his workup that the patient does not need to wait in-house for those results if otherwise stable for discharge Constitutional: improved, no complaints Eyes: no complaints ENT: no complaints Respiratory: no complaints Cardiovascular: no complaints Gastrointestinal: other (See HPI) Genitourinary: no complaints Musculoskeletal: no complaints Skin: no complaints Neurologic: no complaints Endocrine: no complaints Lymphatic: no complaints Psychological: no complaints Immunologic: no complaints Past Medical History Medical History: no pertinent history Past Surgical History Past Surgical Hx: no surgical history Family History Significant Family History: no pertinent family hx Social History Alcohol Use: none Smoking Status: Never smoker Drug Use: none Exam/Review of Systems Vital Signs Vitals Vital Signs Date Time Temp Pulse Resp B/P Pulse Ox O2 Delivery O2 Flow Rate FiO2 05/23/17 08:26 98.0 63 18 111/69 95 05/20/17 22:58 Room Air Intake and Output 05/22/17 05/22/17 05/23/17 15:00 23:00 07:00 Intake Total 1000 ml 1500 ml Balance 1000 ml 1500 ml Exam Constitutional: alert, obese, oriented, other (Jaundice), well developed Psych: nl mood/affect, no complaints Head: atraumatic, normocephalic Eyes: EOMI, PERRL, icteric, nl lids ENMT: nl external ears & nose, nl lips & teeth, nl nasal mucosa & septum Neck: non-tender, supple Respiratory: clear to auscultation, normal air movement Cardiovascular: nl pulses, regular rate and rhythm Gastrointestinal: hepatomegaly (Mild and slightly tender), nl liver, spleen, soft, No ascites, No bowel sounds, No distended, No firm, No mass, No rebound or guarding, No splenomegaly Musculoskeletal: nl extremities to inspection, nl gait and stance Extremities: normal pulses Neurological: M[employer] MAGISTRATE II-XII intact, nl mental status, nl speech, nl strength Skin: nl turgor, No rash or lesions Lymph: nl lymph nodes Results Result Diagram: 05/23/17 0528 05/23/17 0528 Results 24 hrs Laboratory Tests Test 05/22/17 12:15 05/23/17 05:28 Prothrombin Time 14.9 H Prothrombin Time Ratio 1.2 INR International Normalized Ratio 1.16 Activated Partial Thromboplast Time 28.6 Ammonia 12 HIV (1&2) Antibody NEGATIVE White Blood Count 16.2 #H Red Blood Count 4.76 Hemoglobin 13.5 L Hematocrit 40.8 L Mean Corpuscular Volume 85.7 Mean Corpuscular Hemoglobin 28.4 L Mean Corpuscular Hemoglobin Concent 33.1 Red Cell Distribution Width 17.1 H Platelet Count 485 H Mean Platelet Volume 10.7 H Neutrophils % 84.4 H Lymphocytes % 9.1 L Monocytes % 5.3 Eosinophils % 0.0 Basophils % 0.1 Nucleated Red Blood Cells % 0.0 Neutrophils # (Manual) 14 H Lymphocytes # 1.5 Monocytes # 0.9 Eosinophils # 0.0 Basophils # 0.0 Nucleated Red Blood Cells # 0.0 Sodium Level 147 H Potassium Level 4.6 Chloride Level 104 Carbon Dioxide Level 27 Anion Gap 21 H Blood Urea Nitrogen 27 H Creatinine 1.03 Glucose Level 150 Calcium Level 9.5 Phosphorus Level 5.0 H Magnesium Level 2.3 Total Bilirubin 9.8 #H Direct Bilirubin 7.30 #H Indirect Bilirubin 2.5 H Aspartate Amino Transf (AST/SGOT) 365 H Alanine Aminotransferase (ALT/SGPT) 1278 H Alkaline Phosphatase 159 H Total Protein 7.5 Albumin 3.7 Globulin 3.80 H Albumin/Globulin Ratio 0.97 Medications Medications Current Medications Morphine Sulfate (morphine) 2 mg Q4H PRN IV PAIN; Start 05/21/17 at 00:00 Ondansetron HCl (Zofran Inj) 4 mg Q6H PRN IV NAUSEA AND/OR VOMITING; Start at 00:00 Dexamethasone 6 mg 6 mg Q6 IV Last administered on 05/23/17 05:35; Admin Dose 6 MG; Start 05/21/17 at 05:30 Sodium Chloride (NS) 1,000 ml @ 125 mls/hr Q8H IV Last administered on 00:51; Admin Dose 125 MLS/HR; Start 05/21/17 at 06:00 LEYDA CORONA MD May 23, 2017 11:50
--- NOTE | 2017-05-23 13:24 | PN ---
Date/Time of Note Date/Time of Note DATE: 05/23/17 TIME: 13:22 Assessment/Plan VTE Prophylaxis VTE Prophylaxis Intervention: SCD's Lines/Catheters IV Catheter Type (from [facility]): Peripheral IV Assessment/Plan Chief Complaint/Hosp Course Impression and plan 1. Hepatitis B. Patient with positive hepatitis B titer. Continue on steroid. GI following. 2. Transaminitis and painless jaundice. Patient with MRCP that did show contracted gallbladder without biliary dilation/obstruction. There was abnormal signal intensity of the liver suspect for reflection of increased iron content. Patient also with high levels of iron on that result. Patient for hemochromatosis workup. Continue with sound printer. Patient for outpatient follow-up with GI 3. Acute renal insufficiency. Improved at this time. Continue to monitor renal panel. Disposition and plan: Patient for hemochromatosis workup. Tentative plan for GI follow-up as outpatient. Discharge when medically stable and cleared by consultants Discussed plan of care with Dr. Baeza Problems: Subjective 24 Hr Interval Summary Free Text/Dictation Denies abdominal pain at this time. Still remains jaundice with icteric sclera Exam/Review of Systems Vital Signs Vitals Vital Signs Date Time Temp Pulse Resp B/P Pulse Ox O2 Delivery O2 Flow Rate FiO2 05/23/17 08:26 98.0 63 18 111/69 95 05/20/17 22:58 Room Air Intake and Output 05/22/17 05/22/17 05/23/17 15:00 23:00 07:00 Intake Total 1000 ml 1500 ml Balance 1000 ml 1500 ml Exam Constitutional: alert Psych: nl mood/affect Head: normocephalic Eyes: nl conjunctiva Neck: supple Respiratory: clear to auscultation Cardiovascular: regular rate and rhythm Gastrointestinal: non-tender, soft Musculoskeletal: nl extremities to inspection Extremities: normal pulses Neurological: [employer] II-XII intact, nl mental status, nl speech Skin: nl turgor Results Result Diagram: 05/23/1728 05/23/1728 Results 24 hrs Laboratory Tests Test 05/23/17 05:28 White Blood Count 16.2 #H Red Blood Count 4.76 Hemoglobin 13.5 L Hematocrit 40.8 L Mean Corpuscular Volume 85.7 Mean Corpuscular Hemoglobin 28.4 L Mean Corpuscular Hemoglobin Concent 33.1 Red Cell Distribution Width 17.1 H Platelet Count 485 H Mean Platelet Volume 10.7 H Neutrophils % 84.4 H Lymphocytes % 9.1 L Monocytes % 5.3 Eosinophils % 0.0 Basophils % 0.1 Nucleated Red Blood Cells % 0.0 Neutrophils # (Manual) 14 H Lymphocytes # 1.5 Monocytes # 0.9 Eosinophils # 0.0 Basophils # 0.0 Nucleated Red Blood Cells # 0.0 Sodium Level 147 H Potassium Level 4.6 Chloride Level 104 Carbon Dioxide Level 27 Anion Gap 21 H Blood Urea Nitrogen 27 H Creatinine 1.03 Glucose Level 150 Calcium Level 9.5 Phosphorus Level 5.0 H Magnesium Level 2.3 Total Bilirubin 9.8 #H Direct Bilirubin 7.30 #H Indirect Bilirubin 2.5 H Aspartate Amino Transf (AST/SGOT) 365 H Alanine Aminotransferase (ALT/SGPT) 1278 H Alkaline Phosphatase 159 H Total Protein 7.5 Albumin 3.7 Globulin 3.80 H Albumin/Globulin Ratio 0.97 Medications Medications Current Medications Morphine Sulfate (morphine) 2 mg Q4H PRN IV PAIN; Start 05/21/17 at 00:00 Ondansetron HCl (Zofran Inj) 4 mg Q6H PRN IV NAUSEA AND/OR VOMITING; Start at 00:00 Dexamethasone 6 mg 6 mg Q6 IV Last administered on 05/23/17 12:05; Admin Dose 6 MG; Start 05/21/17 at 05:30 Sodium Chloride (NS) 1,000 ml @ 125 mls/hr Q8H IV Last administered on 12:03; Admin Dose 125 MLS/HR; Start 05/21/17 at 06:00 KODI CHASE May 23, 2017 13:24
[2017-05-23 14:00] VITALS: BP 108/65; RESP 18
[2017-05-23 19:49] VITALS: BP 120/67; PULSE 62; RESP 18
[2017-05-23 20:00] VITALS: BP 120/67; RESP 18
[2017-05-24] MEDS: DEXAMETHASONE 4 MG/ML 1 ML INJ IV SCH ×3 (01:07→11:36)
[2017-05-24 02:08] VITALS: BP 112/65; RESP 18
[2017-05-24] MEDS: SOD CHLORIDE 0.9% 1,000 ML IV SCH ×2 (05:22→15:42)
[2017-05-24 07:07] LABS: BASOPHILS % 0.2 % (0.0-2.0); HEMATOCRIT 40.7 % (42.0-52.0); HEMOGLOBIN 13.6 g/dl (14.0-18.0); LYMPHOCYTES # 1.2 10^3/ul (0.8-2.9); LYMPHOCYTES % 10.1 % (15.0-51.0); MEAN CORPUSCULAR HGB CONC 33.4 g/dl (32.0-37.0); MEAN CORPUSCULAR VOLUME 86.8 fl (82.0-101.0); MEAN PLATELET VOLUME 10.9 fl (7.4-10.4); MONOCYTE # 0.8 10^3/ul (0.3-0.9); MONOCYTES % 6.7 % (0.0-11.0); NEUTROPHILS % 82.2 % (39.0-77.0); PLATELET COUNT 490 10^3/UL (140-415); RED BLOOD COUNT 4.69 10^6/ul (4.70-6.10); RED CELL DISTRIBUTION WIDTH 16.6 % (11.5-14.5); WHITE BLOOD COUNT 12.3 10^3/ul (4.8-10.8)
[2017-05-24 07:24] LABS: ALBUMIN 3.7 g/dl (3.3-4.9); ALBUMIN/GLOBULIN RATIO 1.12; BILIRUBIN,DIRECT 6.4 mg/dl (0.00-0.20); BILIRUBIN,INDIRECT 2.5 mg/dl (0-1.1); BILIRUBIN,TOTAL 8.9 mg/dl (0.2-1.3); CALCIUM 9.5 mg/dl (8.4-10.2); CREATININE 0.96 mg/dl (0.61-1.24); POTASSIUM 4.4 mmol/L (3.5-5.1)
[2017-05-24 08:10] VITALS: BP 117/65; RESP 18
--- NOTE | 2017-05-24 10:51 | PN ---
Date/Time of Note Date/Time of Note DATE: 05/24/17 TIME: 10:48 Assessment/Plan VTE Prophylaxis VTE Prophylaxis Intervention: ambulation Lines/Catheters IV Catheter Type (from Nrsg): Peripheral IV Assessment/Plan Assessment/Plan Transaminases and bilirubin are coming down gradually. No new suggestions. I would suggest that he follow up as outpatient in our office for the iron situation but do not think that he will need a phlebotomy program. Pt is anxious to eat and to go home. Agree with Dr. Valladares's suggestions. Subjective 24 Hr Interval Summary Free Text/Dictation Pt is comfortable and is watching TV. Anxious to eat again. Exam/Review of Systems Vital Signs Vitals Vital Signs Date Time Temp Pulse Resp B/P Pulse Ox O2 Delivery O2 Flow Rate FiO2 05/24/17 08:10 98.0 55 18 117/65 96 05/23/17 19:49 Room Air Intake and Output 05/23/17 05/23/17 05/24/17 15:00 23:00 07:00 Intake Total 500 ml 125 ml 1000 ml Output Total 4 ml Balance 500 ml 121 ml 1000 ml Exam Constitutional: alert, oriented Head: normocephalic Eyes: icteric Neck: supple Respiratory: clear to auscultation Cardiovascular: regular rate and rhythm Gastrointestinal: soft Results Result Diagram: 05/24/17 0529 05/24/17 0529 Results 24 hrs Laboratory Tests Test 05/24/17 05:29 White Blood Count 12.3 #H Red Blood Count 4.69 L Hemoglobin 13.6 L Hematocrit 40.7 L Mean Corpuscular Volume 86.8 Mean Corpuscular Hemoglobin 29.0 Mean Corpuscular Hemoglobin Concent 33.4 Red Cell Distribution Width 16.6 H Platelet Count 490 H Mean Platelet Volume 10.9 H Neutrophils % 82.2 H Lymphocytes % 10.1 L Monocytes % 6.7 Eosinophils % 0.0 Basophils % 0.2 Nucleated Red Blood Cells % 0.0 Neutrophils # (Manual) 10 H Lymphocytes # 1.2 Monocytes # 0.8 Eosinophils # 0.0 Basophils # 0.0 Nucleated Red Blood Cells # 0.0 Sodium Level 147 H Potassium Level 4.4 Chloride Level 104 Carbon Dioxide Level 26 Anion Gap 21 H Blood Urea Nitrogen 28 H Creatinine 0.96 Glucose Level 142 Calcium Level 9.5 Total Bilirubin 8.9 H Direct Bilirubin 6.40 H Indirect Bilirubin 2.5 H Aspartate Amino Transf (AST/SGOT) 265 H Alanine Aminotransferase (ALT/SGPT) 954 H Alkaline Phosphatase 141 H Total Protein 7.0 Albumin 3.7 Globulin 3.30 H Albumin/Globulin Ratio 1.12 Medications Medications Current Medications Morphine Sulfate (morphine) 2 mg Q4H PRN IV PAIN; Start 05/21/17 at 00:00 Ondansetron HCl (Zofran Inj) 4 mg Q6H PRN IV NAUSEA AND/OR VOMITING; Start at 00:00 Dexamethasone 6 mg 6 mg Q6 IV Last administered on 05/24/17 05:22; Admin Dose 6 MG; Start 05/21/17 at 05:30 Sodium Chloride (NS) 1,000 ml @ 125 mls/hr Q8H IV Last administered on 05:22; Admin Dose 125 MLS/HR; Start 05/21/17 at 06:00 PATRICIA VILLARREAL MD May 24, 2017 10:51
[2017-05-24 13:41] VITALS: BP 116/69; RESP 18
[2017-05-24] MEDS ORDERED: ONDA-43 PO (16:20)
[2017-05-24] MEDS ORDERED: PRED10TA PO (16:20)
--- NOTE | 2017-05-24 16:25 | PDOCDIS ---
Discharge Instructions DIAGNOSIS Discharge Diagnosis 1. Transaminitis and hyperbilirubinemia secondary to hepatitis B 2. New diagnosis of hepatitis B 3. Elevated iron levels CONDITION Patient Condition: Stable HOME CARE INSTRUCTIONS: Special Diet: npo FOLLOW UP/APPOINTMENTS Follow-up Plan 1. Follow up with Dr. Javan Valladares in one week 2. Follow up with Dr. Gerson Graves in one week KODI CHASE May 24, 2017 16:25
--- NOTE | 2017-05-26 16:47 | DS ---
Date/Time of Note Date/Time of Note DATE: 05/26/17 TIME: 16:42 Discharge Summary Admission/Discharge Info Admit Date/Time May 20, 2017 at 18:13 Discharge Date/Time May 24, 2017 at 17:45 Discharge Diagnosis 1. Transaminitis and hyperbilirubinemia secondary to hepatitis B 2. New diagnosis of hepatitis B 3. Elevated iron levels (possible hemochromatosis) Patient Condition: Stable Consults 1. Dr. Javan Valladares 2. Dr. Gerson Graves Hx of Present Illness This is a 41-year-old male with no significant past medical history who presented to the emergency department complaining of nausea and jaundice. 5 days ago, he started noticing his eyes and his skin turning yellow with associated nausea. He denied abdominal pain, fever/chills. He denied weight loss, recent travel or sick contacts. He denied alcohol or illicit drug use. He also denied antibiotic or any other [id number] or prescription medication use recently. When he presented to the ER, labs show severely abnormal liver chemistries with total bilirubin 15 with the direct bilirubin of 26.6 AST 1532, ALT 2659, alk phos 237. Creatinine is 1.5. Right upper quadrant ultrasound shows contracted gallbladder without stones or cholecystitis. . Hospital Course This is a 41-year-old male with no reported past medical history who came [facility] due to reports of nausea and jaundice. Patient reported that his symptoms started 5 days prior to admission when he noticed his eyes and his skin started turning yellow with associated nausea. He denied any abdominal pain or fever or chills. He did come to [facility] and was found to have a total bilirubin 15, direct bilirubin of 26.6, AST 1532, ALT of 2659, alk phos of 237, and creatinine of 1.5. Patient was consulted by sdc teacher. We also did serology on the patient that did come back positive for hepatitis B. There is also incidental finding from MRCP of the patient having imaging showing contracted gallbladder without biliary dilation and abnormal signal intensity of the liver which may reflect increased iron content. When tested for iron levels there were noted to be high with iron level 266, iron saturation 91, and ferritin greater than 1000. Patient was also seen by passenger relations representative for further management and care. Patient was provided with appropriate IV hydration and we did monitor his liver function which did slowly start to improve. He was instructed to follow-up with sdc teacher as outpatient for further management of his hepatitis B and he was instructed to follow-up with passenger relations representative and concerns for his high iron levels. His renal function did improve status post IV hydration. During his course of stay he did improve. He was instructed to follow-up with consults as outpatient for further management and care. The plan of care was discussed with patient and patient did verbalize understanding. On the day of discharge patient was in stable condition Discussed plan of care with Dr. Baeza [facility] Active Scripts Ondansetron Hcl* (Zofran*) 4 Mg Tab, 4 MG PO Q4H Y for NAUSEA AND OR VOMITING, # 30 TAB Prov:KODI CHASE 05/24/17 Prednisone* (Prednisone*) 10 Mg Tab, 10 MG PO DAILY, #30 TAB 1. take 40mg by mouth daily for 3 days 2. then 30mg by mouth daily for 3 day 3. then 20mg by mouth daily for 3 days 4. then 10mg by mouth daily for 3 days Prov:KODI CHASE 05/24/17 Follow-up Plan CONDITION Patient Condition: Stable HOME CARE INSTRUCTIONS: Special Diet: npo FOLLOW UP/APPOINTMENTS Follow-up Plan 1. Follow up with Dr. Javan Valladares in one week 2. Follow up with Dr. Gerson Graves in one week Primary Care Provider Care Physician No Primary Time spent on discharge: > 30 minutes Pending Labs Laboratory Tests Test 05/26/17 10:47 05/26/17 11:52 Lab Scanned Report REFERENCE [id number] REFERENCE [id number] KODI CHASE May 26, 2017 16:46
== END 2017-05-24 17:45 | disposition home or self-care (01) | DRG 442 ==
LOC: E/R 16:05 → MS2 18:13
PROVIDERS: ADMIT Internal Medicine; ATTEND Internal Medicine
DX: B16.9 Acute hepatitis B without delta-agent and without hepatic coma (principal); N17.9 Acute kidney failure, unspecified; R17 Unspecified jaundice; R74.0 Nonspecific elevation of levels of transaminase and lactic acid dehydrogenase [LDH]; E80.6 Other disorders of bilirubin metabolism; E83.119 Hemochromatosis, unspecified; K82.8 Other specified diseases of gallbladder; E66.9 Obesity, unspecified; Z68.30 Body mass index [BMI] 30.0-30.9, adult
CPT/HCPCS: 36415; 74181; 76705; 80053; 80061; 80306; 81001; 81003; 82103; 82105; 82140; 82728; 83036; 83540; 83615; 83690; 83735; 84100; 85025; 85610; 85730; 86038; 86703; 86704; 86708; 86709; 86803; 87340; J1100; J7030